=== PATIENT | female | born 1945 | race Caucasian/White ===

== ENCOUNTER → 2017-10-21 | Outpatient (CLI) | payer MEDICARE ==
[2016-07-27 13:36] VITALS: BMI 33.5
[~2017-10-21] MED LIST: ADV100/50 INH; ALB0.5 INH; ALBUDR INH; ASCO-599 PO; ASCO100T PO; ASPI-1471 PO; ASPI-274 PO; ASPI-719 PO; ATOR10TA65 PO; AUG875 PO; AZA50 PO; AZAT50TA25 PO; AZI250 PO; AZIT500T47 PO; BENZ200C38 PO; CALC-1197 PO; CEFU250 PO; CEP500 PO; CEPH250C37 PO; CHOL100094 PO; CITA-128 PO; CODE118S5 PO; CYAN25007 SL; CYAN250T15 PO; CYAN50TA3 PO; DUONEB INH; ESC10 PO; FLUT1DIS27 IH; FOL1 PO; FUR20 PO; GENT5DRO28 OP; GLUC-241 PO; GLUC-396 PO; GUAI480S48 PO; HYD200 PO; HYDR-317 PO; HYDR-385 PO; HYDR-4309 PO; HYDR200T77 PO; HYDR473S4 PO; HYDROCODONE/ACETAMIN; KET10 PO; LEV500 PO; LEVAQUIN; LEVO500T PO; LEVO750T25 PO; LEVO750T27 PO; LOR5 PO; LOR5/325 PO; LOTE5DRO3 OD; MEC25 PO; MECL-111 PO; MELO-150 PO; MELO-207 PO; MET10 PO; MET1000I; METF-411 PO; METH7.5T2 PO; METXR500 PO; NAPR500T31 PO; NOR5/325 PO; OXYC-823 PO; OXYC20TA86 PO; OXYC5TAB38 PO; OXYG1EAC MC; OXYGEN INH; PAN40 PO; PANT40TA63 PO; PANT40TA65 PO; PER PO; POTA20TA85 PO; POTA75TA PO; PRA20 PO; PRE10 PO; PRE20 PO; PRED-1 PO; PRED-314 PO; PRED1DRO2 OP; PREOD OD; REGADENOSON 0.4 MG/5 ML SYR ONE; SIMV10TA98 PO; SPIR25TA78 PO; SULF-198 PO; TIOT18CA6 IH; TOBOD OD; TRAM-420 PO; TRIA1CAP PO; VERA180C7 PO; [UNRECOGNIZED DRUG - OTHER]; [UNRECOGNIZED DRUG - OTHER]; [UNRECOGNIZED DRUG - OTHER]; [UNRECOGNIZED DRUG - REMARK]
--- NOTE | 2017-10-21 15:14 | RADIOLOGY IMAGING REPORT ---
FACILITY: [facility] PATIENT NAME: Siena Tomlinson : 1945 MR: [id number] V: [id number] EXAM DATE: ORDERING PHYSICIAN: JORGE HATCH TECHNOLOGIST: Location: [facility] [place] Patient: Siena Tomlinson : 1945 Visit/Account:[id number] Date of Sevice: 10/21/2017 EXAMINATION: Single isotope SPECT imaging with regadenoson infusion and gated SPECT imaging. DATE OF EXAMINATION: 10/21/17. DATE OF INTERPRETATION: 10/21/17. REQUESTING PHYSICIAN: JORGE HATCH MD. INDICATION: [CAD ]. PROCEDURE: After informed consent the patient received an intravenous injection of 12.5 mCi of Tc-99 m sestamibi followed at an appropriate time interval by rest imaging. The patient then subsequently received an intravenous infusion of 0.4 mg of regadenoson per protocol without complication. Baselin e EKG demonstrates NSR. There were no EKG changes of ischemia following infusion. Symptoms were non specific. The patient then received an intravenous injection of 29 mCi of Tc-99m sestamibi followed by stress imaging. RAW DATA: Examination of the summed raw data revealed a good quality study. Breast attenuation noted . MYOCARDIAL PERFUSION: The tomographic images demonstrate small sized moderate defect on rest and str ess imaging that resolves with prone imaging. Likely breast attenuation without ischemia or infart. No TID noted. GATED IMAGES: The gated images demonstrate 68% with normal wall motion. IMPRESSION: 1. No diagnostic EKG changes. 2. Normal myocardial perfusion scan with evidence of attenuation. No ischemia or infarct noted. 3. Normal LV systolic function; LVEF 68%. 4. Based on the results of this exam, the patient appears to be at low risk for future cardiovascular events in short term, moderate intermediate risk due to need for Lexiscan as opposed to ETT. Report Dictated By: Phuc Fan at 10/21/2017 3:04 PM Report E-Signed By: Phuc Fan at 10/21/2017 3:11 PM WSN:[id number]
== END ==
LOC: NUC 01:47
PROVIDERS: ATTEND Internal Medicine Cardiovascular Disease
DX: I25.118 Atherosclerotic heart disease of native coronary artery with other forms of angina pectoris (principal)
CPT/HCPCS: 78452; 93017; A9500; J2785

== ENCOUNTER → 2017-11-30 | Outpatient (CLI) | payer MEDICARE ==
[2016-07-27 13:36] VITALS: BMI 33.5
[~2017-11-30] MED LIST changes: -REGADENOSON 0.4 MG/5 ML SYR ONE
[2017-11-30 08:33] LABS: PLATELET COUNT, AUTOMATED 218 K/uL (150-450)
== END ==
LOC: LAB 08:03
PROVIDERS: ATTEND Anesthesiology
DX: Z01.812 Encounter for preprocedural laboratory examination (principal); M17.12 Unilateral primary osteoarthritis, left knee
CPT/HCPCS: 36415; 81001; 82040; 82247; 82310; 82374; 82435; 82565; 82947; 84075; 84132; 84155; 84295; 84450; 84460; 84520; 85025; 87088

== ENCOUNTER → 2017-12-08 | Outpatient (CLI) | payer MEDICARE ==
[2016-07-27 13:36] VITALS: BMI 33.5
[2017-12-08 12:11] LABS: PLATELET COUNT, AUTOMATED 221 K/uL (150-450)
== END ==
LOC: LAB 11:44
PROVIDERS: ATTEND Anesthesiology
DX: Z01.812 Encounter for preprocedural laboratory examination (principal); M17.12 Unilateral primary osteoarthritis, left knee
CPT/HCPCS: 36415; 81001; 82040; 82247; 82310; 82374; 82435; 82565; 82947; 84075; 84132; 84155; 84295; 84450; 84460; 84520; 85025

== ENCOUNTER → 2018-02-28 | Outpatient (CLI) | payer MEDICARE ==
[2016-07-27 13:36] VITALS: BMI 33.5
[~2018-02-28] MED LIST changes: +ACYC-1 PO; +BROM5DRO2 OP; +CIPR3.5O4 OP; +FLUT1AER INH; -HYDR-4309 PO; +HYDR-653 PO; -METF-411 PO; +METF-450 PO; +OASIS TEARS OP; +[UNRECOGNIZED DRUG - CODE] OP
--- NOTE | 2018-02-28 13:39 | EKG ---
FACILITY: [facility] PATIENT NAME: RICHARD RAM : [id number] MR: [id number] V: [id number] EXAM DATE: ORDERING PHYSICIAN: KASH CABALLERO TECHNOLOGIST: JEAN-CLAUDE Lai Reason : PREOP-KNEE Blood Pressure : / mmHG Vent. Rate : 074 BPM Atrial Rate : 074 BPM P-R Int : 154 ms QRS Dur : 092 ms QT Int : 420 ms P-R-T Axes : 064 034 058 degrees QTc Int : 466 ms Normal sinus rhythm Normal ECG No previous ECGs available Confirmed by Russ Santamaria ([id number]) on 02/28/2018 11:19:16 PM Referred By: MAGNUS Confirmed By:Russ Miles
[2018-02-28 13:41] LABS: PLATELET COUNT, AUTOMATED 274 K/uL (150-450)
== END ==
LOC: LAB 13:00
PROVIDERS: ATTEND Anesthesiology
DX: Z01.812 Encounter for preprocedural laboratory examination (principal); Z01.810 Encounter for preprocedural cardiovascular examination; M17.12 Unilateral primary osteoarthritis, left knee; E11.65 Type 2 diabetes mellitus with hyperglycemia
CPT/HCPCS: 36415; 81001; 82040; 82247; 82310; 82374; 82435; 82565; 82947; 83036; 84075; 84132; 84155; 84295; 84450; 84460; 84520; 85025; 93005

== ENCOUNTER → 2018-03-10 | Outpatient (CLI) | payer MEDICARE ==
[2016-07-27 13:36] VITALS: BMI 33.5
[~2018-03-10] MED LIST changes: +ACYC-50 PO; +DOXY50CA27 PO; +ERYT1OIN3 TP; +PRED15SO5 OD
== END ==
LOC: US 01:14
PROVIDERS: ATTEND Internal Medicine
DX: I51.7 Cardiomegaly (principal)
CPT/HCPCS: 93306

== ENCOUNTER 2018-03-16 02:22 | Inpatient (IN) | payer MEDICARE ==
[2018-03-15 14:32] LABS: INR 0.98
[~2018-03-16] VITALS: Ht 149.9 cm; Wt 76.2 kg
[2018-03-16] VITALS (10 sets, daily range): BP systolic 101–122; BP diastolic 62–98
[~2018-03-16 02:22] MED LIST changes: +ACETAMINOPHEN 500 MG TAB PO ONE; +BACITRACIN 50000 UNIT/VIAL 100,000 UNIT in NS 0.9% 3000 ML IRRIGATION BAG 3,000 ML IR ONE; +CELECOXIB 200 MG CAP PO ONE; +FAMOTIDINE 20 MG TAB PO ONE; +LIDOCAINE/SOD BICARB 8.4% SYR ID ONE; +MIDAZOLAM 2 MG/2 ML VIAL IVP PRN; +NORMOSOL R SOLN(*) 1000 ML BAG 1,000 ML IV PRN; +PREGABALIN 75 MG CAPSULE PO ONE; +TRANEXAMIC AC 1000 MG/10ML SDV 1,000 MG in DEXTROSE 5% 50 ML BAG 50 ML IV ONE; +ceFAZolin(*) 2GM/D5W 50ML 50 ML IVPB ONE; +cloNIDine EPIDUR INJ 100MCG/ML 40 MCG, ROPIVACAINE 0.5% 20 ML VIAL 25 ML, EPINEPHrine H... EPI ONE
[2018-03-16] MEDS ORDERED: fentaNYL CITR 250 MCG/5 ML AMP ONE (08:11)
[2018-03-16] MEDS ORDERED: LIDOCAINE 2% IV 100 MG/5ML SYR ONE (08:12)
[2018-03-16] MEDS ORDERED: PROPOFOL EMUL(*) 10MG/ML 20 ML 20 ML ONE (08:12)
[2018-03-16] MEDS ORDERED: ROPIVACAINE 0.5% 20 ML VIAL ONE (08:18)
[2018-03-16] MEDS ORDERED: DEXAMETHASONE SOD 4 MG/ML VIAL ONE ×2 (08:19→08:27)
[2018-03-16] MEDS ORDERED: TRANEXAMIC AC 1000 MG/10ML SDV 1,000 MG in DEXTROSE 5% 50 ML BAG 50 ML IV ONE (09:15)
[2018-03-16] MEDS ORDERED: BACITRACIN 50000 UNIT/VIAL 100,000 UNIT in NS 0.9% 3000 ML IRRIGATION BAG 3,000 ML IR ONE (09:15)
[2018-03-16] MEDS ORDERED: ceFAZolin(*) 2GM/D5W 50ML 50 ML IVPB ONE (09:15)
[2018-03-16] MEDS ORDERED: LIDOCAINE/SOD BICARB 8.4% SYR ID ONE (09:15)
[2018-03-16] MEDS ORDERED: PREGABALIN 75 MG CAPSULE PO ONE (09:15)
[2018-03-16] MEDS ORDERED: cloNIDine EPIDUR INJ 100MCG/ML 40 MCG, ROPIVACAINE 0.5% 20 ML VIAL 25 ML, EPINEPHrine H... INJ ONE (09:15)
[2018-03-16] MEDS ORDERED: MIDAZOLAM 2 MG/2 ML VIAL IVP PRN (09:15)
[2018-03-16] MEDS ORDERED: ACETAMINOPHEN 500 MG TAB PO ONE (09:15)
[2018-03-16] MEDS ORDERED: NORMOSOL R SOLN(*) 1000 ML BAG 1,000 ML IV PRN (09:15)
[2018-03-16] MEDS ORDERED: CELECOXIB 200 MG CAP PO ONE (09:15)
[2018-03-16] MEDS ORDERED: ROCURONIUM BROM 10 MG/ML 10 ML ONE (11:00)
[2018-03-16] MEDS ORDERED: KETAMINE HCL 200 MG/20 ML MDV ONE ×2 (11:28→12:27)
[2018-03-16] MEDS ORDERED: ONDANSETRON 4 MG/2 ML VIAL ONE (11:34)
[2018-03-16] MEDS ORDERED: fentaNYL CITR 100 MCG/2 ML AMP ONE ×2 (12:15→12:46)
[2018-03-16] MEDS ORDERED: SUGAMMADEX SOD 200 MG/2 ML SDV ONE (12:16)
[2018-03-16] MEDS ORDERED: diphenhydrAMINE 25 MG CAP PO PRN (13:55)
[2018-03-16] MEDS ORDERED: MAGNESIUM CITRATE 300 ML BTL PO PRN (13:55)
[2018-03-16] MEDS ORDERED: BISACODYL 10 MG SUPP PR PRN (13:55)
[2018-03-16] MEDS ORDERED: FLUSH 10 ML SYR IVP PRN (13:55)
[2018-03-16] MEDS ORDERED: HYDROmorphone HCL 2 MG/ML SDV IVP PRN (13:55)
[2018-03-16] MEDS ORDERED: LR 1000 ML BAG 1000 ML IV PRN (13:55)
[2018-03-16] MEDS ORDERED: MAGNESIUM HYDROXIDE* 30ML UDCP PO PRN (13:55)
[2018-03-16] MEDS ORDERED: PROMETHAZINE 25 MG/ML 1 ML AMP IVP PRN (13:55)
[2018-03-16] MEDS ORDERED: diphenhydrAMINE 50 MG/ML VIAL IVP PRN (13:55)
[2018-03-16] MEDS ORDERED: ONDANSETRON 4 MG/2 ML VIAL IVP PRN (13:55)
[2018-03-16] MEDS ORDERED: ZOLPIDEM TARTRATE 5 MG TAB PO PRN (13:55)
--- NOTE | 2018-03-16 15:07 | RADIOLOGY IMAGING REPORT ---
FACILITY: [facility] [place] PATIENT NAME: Siena Tomlinson : 1945 MR: [id number] V: [id number] EXAM DATE: ORDERING PHYSICIAN: ANDREE AGUDELO TECHNOLOGIST: Location: [facility] [place] Patient: Siena Tomlinson : 1945 Visit/Account:[id number] Date of Sevice: 03/16/2018 KNEE LIMITED LEFT Indication: Postop knee replacement Comparison: None available Findings: There are surgical changes from three part knee replacement. TKA appears appropriately positioned, n o abnormal lucencies are identified. IMPRESSION: 1. Unremarkable postoperative appearance of three part TKA Report Dictated By: Sam Rosales at 03/16/2018 3:02 PM Report E-Signed By: Sam Rosales at 03/16/2018 3:03 PM WSN:[id number]
[2018-03-16] MEDS ORDERED: METF500T4 PO (15:31)
--- NOTE | 2018-03-16 15:31 | OPERATIVE REPORT 1 ---
EVENT DATE: March 16, 2018 SURGEON: Ke Winchester MD ANESTHESIOLOGIST: Saul Rodriguez MD ANESTHESIA: General plus a block. PUNCHBOARD ASSEMBLER: Guero Navarrete PA-C PREOPERATIVE DIAGNOSIS Left knee osteoarthritis. POSTOPERATIVE DIAGNOSIS Left knee osteoarthritis. PROCEDURE PERFORMED Left total knee arthroplasty. FINDINGS The patient has a significant amount of arthritic changes associated with the knee, but was amenable for a total knee replacement and had good movement afterwards. ESTIMATED BLOOD LOSS About 250 mL. DRAINS None. COMPLICATIONS None. TOURNIQUET TIME About 18 minutes. It was up only during cementation. IMPLANTS USED DePuy Attune posterior stabilized knee with a size 6 narrow cemented femur with a size 5 cemented tibial baseplate with a rotating platform and a rotating platform posterior stabilized 6 mm tibial insert. There was also a 32 cemented anatomic patella. SPECIMENS None. INDICATIONS AND HISTORY This patient is a 72-year-old female who presented to my clinic for evaluation of knee pain and irritation going on for some time. She continued to have knee pain in the left knee despite conservative management, so she wanted to go ahead with a total knee arthroplasty on the date today, 03/16/2018. The risks and benefits were discussed with the patient, and informed consent was obtained at the last clinic visit. She understood it may not give her complete relief, and she may have some stiffness associated with it. She understood those. We went over the informed consent, and she agreed to do this today. DESCRIPTION OF PROCEDURE As the patient was brought into the operating room, she and the procedure were both verified. She was placed supine on the operating room and induced and intubated by Anesthesia. After beginning with the block, the left lower extremity was then prepped and draped in the usual fashion. A timeout was observed verifying the correct patient and procedure. The standard incision was made over the anterior aspect of the knee, and then we went in through the medial parapatellar approach. Once I went in through the medial parapatellar approach, I was then able to cauterize all bleeders throughout the area and make sure there was a clean field. We also removed a little bit of irritation over the superior pouch over the femur. I then was able to remove the patellar fat pad and also the anterior aspects of the medial and lateral menisci. I then was able to put the knee into high flexion and then remove the ACL and the leading portion of the PCL. I then removed some osteophytes off the femur and then put the intramedullary drill down the middle portion of the femur. I then utilized the intramedullary guide from the Attune system, setting it on 5 and 9 to resect 9 mm off the distal femur. I then put in the measuring guide and drilled the pins. This measured to a 6, and so therefore, we put in the four-in-one cutting block for a 6, and I was able to cut the four cuts including the two chamfer cuts without any difficulty. I then put in the notch cutting block and cut the 6 notch without any issues. We then removed some posterior osteophytes and then turned attention to the tibia. Once on the tibia, I was able to clean out the rest of the posterior aspect of the menisci and also the rest of the PCL and the remnant of the ACL. I then was able to drill the central portion down the intramedullary canal and then use the intramedullary guide from the Attune system in order to cut the femur. I then cut 2 mm off the medial side, which was the low side, and then was able to remove some more osteophytes off this area in order to prep the tibia. Once we made this cut, I then was able to go to the posterior aspect of the femur where I was able to remove some posterior osteophytes off this area and then do a little bit of capsular release as she had a slight contracture. This was then followed by prepping the tibia with a 5 baseplate. The 5 seemed to do pretty well, and so therefore, we then prepped the tibia without any difficulty and then put in the trial. We then put in the trial components for the femur also and then put in the 6 mm tibial insert. This had excellent flexion and extension. It went out to full extension and then had no signs of major instability associated with flexion. We then were able to irrigate with copious amounts of saline, keep it straight, and then prepare the patella. We prepared the patella by measuring the patella to about 21. We, therefore, then used the 7.5 mm cut from the patella, removed the edge of the patella, and then sized the patella to a 32 anatomic. I then was able to go through the drills holes associated with this and drill the lug nuts out of the femur. I then trialed the 32 patella, and it looked very good and tracked well, and so therefore, these were the final components chosen. I then put up the tourniquet after exsanguinating the limb and removed the trial components. I irrigated with copious amounts of saline and then put in the pain cocktail. I was then able to cement in the components without any difficulty, and once the cement was hard, we were able to remove the attachment to the patella and then make sure everything tracked well. We also let down the tourniquet. This was then followed by closure of the medial parapatellar capsule with #2 Stratafixes, then followed by 2-0 Vicryl in the subcutaneous tissue, then a subcutaneous 2-0 Stratafix through the skin, and then a 4-0 subcuticular running Monocryl. This was then followed by a bio-occlusive dressing. The patient was then awakened, extubated, and transferred to PACU in stable condition. MYRTLE
[2018-03-16] MEDS ORDERED: INSULIN HUM LISPRO 100 UN/ML 3 ML VIAL SUBQ PRN (15:45)
--- NOTE | 2018-03-16 16:01 | Hospitalist Consultation ---
History of Present Illness Requesting Physician Dr. Winchester Reason for Consult Medical Management Chief Complaint s/p left total knee replacement History of Present Illness She was admitted s/p left total knee replacement. It is reported the surgery went well and without complication. History Problems: (1) Shingles Status: Acute (2) CAD (coronary artery disease) Status: Chronic (3) GERD (gastroesophageal reflux disease) Status: Chronic (4) DM2 (diabetes mellitus, type 2) Status: Chronic (5) History of lupus Status: Chronic (6) History of irregular heartbeat Status: Chronic Home Meds Reported Medications Metformin Hcl (METFORMIN HCL ER) 500 Mg Tab.er.24, 1 TAB PO QDAY, TAB 03/16/18 Erythromycin Base (Erythromycin) 5 Mg/Gram (0.5 %) Oint...g., 1 UNIT TP HS 03/08/18 Prednisolone Sod Phos 15 Mg/5 Ml (PREDNISOLONE SOD PHOS 15 MG/5 ML) 15 Mg/5 Ml Solution, 1 GTT OD DAILY, BOT 03/08/18 Acyclovir (ACYCLOVIR) 400 Mg Tablet, 400 MG PO 5XD, TAB 03/08/18 Doxycycline Hyclate (DOXYCYCLINE HYCLATE) 50 Mg Capsule, 50 MG PO DAILY, CAPSULE 03/08/18 Meloxicam (MELOXICAM) 15 Mg Tablet, 15 MG PO QDAY 01/26/18 Fluticasone/Vilanterol 100/25 Mcg/Inh (BREO ELLIPTA 100/25 MCG) 1 Each Aer.pow.ba, 1 INH INH QAM, INH 12/15/17 [[place] Tears ] No Conflict Check, 1 DROP OP PRN 12/15/17 Hydroxychloroquine Sulfate (PLAQUENIL) 200 Mg Tablet, 400 MG PO QDAY 12/15/17 Pantoprazole Sodium (PANTOPRAZOLE SODIUM) 40 Mg Tablet.dr, 40 MG PO QDAY, TAB.SR 03/02/17 Atorvastatin Calcium (ATORVASTATIN CALCIUM) 10 Mg Tablet, 1 TAB PO QDAY, TAB 07/27/16 Cyanocobalamin (Vitamin B-12) (VITAMIN B-12) 250 Mcg Tablet, 250 MCG PO QDAY 07/27/16 Aspirin (ASPIR 81) 81 Mg Tablet.dr, 81 MG PO QDAY, TAB 07/27/16 Glucosa [place] 2KCL/Chondroitin [place] (GLUCOSAMINE CHONDROITIN CAPLET) 1 Each Tablet, 1 EACH PO BID 11/08/13 Citalopram Hydrobromide (Citalopram Hbr) 20 Mg Tablet, 20 MG PO DAILY, 0 Refills 02/07/12 Spironolactone (Spironolactone) 25 Mg Tablet, 25 MG PO QAM, 0 Refills 02/27/11 Calcium Carbonate/Vitamin D3 (Calcium W-Vit D 600-200 Mg Tab) 1 Tab Tablet, 1 TAB PO BID, 0 Refills 02/27/11 Ascorbate Calcium (Vitamin C) 500 Mg Tablet, 500 MG PO BID, 0 Refills 02/27/11 Verapamil Hcl (Verelan) 180 Mg Cap24h.pel, 180 MG PO DAILY, 0 Refills 02/27/11 Discontinued Reported Medications Metformin Hcl (METFORMIN HCL) 500 Mg Tablet, 1 TAB PO QDAY, TAB 03/02/17 Allergies: Coded Allergies: methotrexate (Verified Allergy, Intermediate, BREATHING PROBLEMS, 01/26/18) alprazolam (Verified Allergy, Mild, SMALL AMOUNT WORKS TOO WELL, 12/15/17) "OVERLY SENSITIVE TO IT" Beta-Blockers (Beta-Adrenergic Bloc (Verified Allergy, Unknown, Lupus, 12/15/17) "FCI EFFECT GIVES ME CHEMICALLY INDUCED LUPUS" Patient History: FH: diabetes mellitus MOTHER (KIDNEY CANCER, DM, STROKE), FH: kidney cancer MOTHER (KIDNEY CANCER, DM, STROKE), FH: lung cancer MOTHER (KIDNEY CANCER, DM, STROKE), Hx Smoking: Yes (QUIT 1998) Smoking Status: Former Smoker, Heavy Tobacco Smoker Exposure to Second Hand Smoke?: Yes ("SOMETIMES") Caffeine Intake: Coffee Caffeine/Cups Per Day: 3 Hx Alcohol Use: Yes Alcohol Used: Beer Hx Substance Use Disorder: No Social Drug Use: Never History of IV Drug Use: No Review of Systems All Systems Reviewed/Normal: Yes, Except as Noted Exam Vital Signs Vital Signs Date Time Temp Pulse Resp B/P (MAP) Pulse Ox O2 Delivery O2 Flow Rate FiO2 03/16/18 14:40 91 Nasal Cannula 3.0 03/16/18 14:37 98.1 96 16 119/62 (81) General Appearance: Alert, Awake, No Acute Distress, Afebrile Neuro: No Gross deficits Cardiovascular: Regular Rate and Rhythm Respiratory: No Respiratory Distress, Clear to Auscultation GI: Abd Soft and Non-Tender Psych: Alert & Oriented X3, Appropriate Mood & Affect Assessment and Plan Problems: (1) Status post total left knee replacement Status: Acute Assessment & Plan: She will be placed on Aspirin for DVT prophylaxis. She has no history of DVT or PE. (2) DM2 (diabetes mellitus, type 2) Status: Chronic Assessment & Plan: She is on chronic treatment with Metformin. She will be placed on SS insulin #1 and AC/HS blood glucose monitoring. We will hold Metformin until patient is eating better, she reports her A1C is 5.5. (3) History of irregular heartbeat Status: Chronic Assessment & Plan: She is on chronic treatment with Verapamil. This has been restarted with hold parameters. (4) History of lupus Status: Chronic Assessment & Plan: She is on chronic treatment with Plaquenil. This was held two weeks prior to surgery. (5) GERD (gastroesophageal reflux disease) Status: Chronic Assessment & Plan: She is on chronic treatment with Protonix. (6) CAD (coronary artery disease) Status: Chronic Assessment & Plan: She is on chronic with baby aspirin and Spironoloactone. Aspirin to be held, while receiving the 325mg. Spironolactone to be held until blood pressures are more elevated. (7) Shingles Status: Acute Assessment & Plan: Recent Shingles infection of the eye. She is on multiple medications for treatment of Shingles. Venous Thromboembolism Antithrombotics Is Pt On Any Antithrombotics?: No Exam Sepsis Risk: No Definite Risk NEELA CARVAJAL Mar 16, 2018 16:01
[2018-03-16] MEDS: ACYCLOVIR 200 MG CAP PO SCH ×2 (17:15→23:03)
[2018-03-16] MEDS: ceFAZolin(*) 1 GM VIAL 1 GM in NS(*) 0.9% 100 ML ADDVANT BAG 100 ML IVPB SCH (19:43)
[2018-03-16] MEDS: ASPIRIN 325 MG TAB PO SCH (21:05)
[2018-03-16] MEDS: ERYTHROMYCIN OP OINT 5MG/GM TU OD SCH (21:06)
[2018-03-17] MEDS: ceFAZolin(*) 1 GM VIAL 1 GM in NS(*) 0.9% 100 ML ADDVANT BAG 100 ML IVPB SCH ×2 (04:05→10:54)
[2018-03-17] MEDS: ACYCLOVIR 200 MG CAP PO SCH ×5 (05:46→21:45)
[2018-03-17] MEDS: FLUTICASONE/VILANTEROL 100 MCG/25 MCG INH INH SCH ×2 (06:00→18:47)
[2018-03-17 07:39] VITALS: BP 123/71
[2018-03-17 08:35] VITALS: Ht 149.9 cm; Wt 76.2 kg
[2018-03-17] MEDS ORDERED: VERAPAMIL HCL SR 180 MG TABCR PO SCH (09:00)
[2018-03-17] MEDS: HYDROXYCHLOROQUINE 200 MG TAB PO SCH (09:16)
[2018-03-17] MEDS: PANTOPRAZOLE SOD 40 MG TABEC PO SCH (09:17)
[2018-03-17] MEDS: ATORVASTATIN 10 MG TAB PO SCH (09:17)
[2018-03-17] MEDS: CITALOPRAM HYDROBROM 20 MG TAB PO SCH (09:17)
[2018-03-17] MEDS: prednisoLONE ACE 1% OP 5ML BTL OD SCH (09:18)
--- NOTE | 2018-03-17 09:26 | Hospitalist Progress Note ---
Subjective Progress Notes Subjective She has no complaints this morning. She had no acute events overnight. Patient Complains of: Cardiovascular: No: Chest Pain Respiratory: No: Shortness of Breath Physical Exam Vital Signs Date Time Temp Pulse Resp B/P (MAP) Pulse Ox O2 Delivery O2 Flow Rate FiO2 03/16/18 23:04 98.1 95 16 101/65 (77) 92 Nasal Cannula 2.5 Intake and Output 03/17/18 07:00 Intake Total 1775 ml Output Total 250 ml Balance 1525 ml Intake Oral 0 ml IV Total 1775 ml Output Estimated Blood Loss 250 ml # Voids 3 General Appearance: Alert, Awake, No Acute Distress, Afebrile Neuro: No Gross deficits Cardiovascular: Regular Rate and Rhythm Respiratory: No Respiratory Distress, Clear to Auscultation GI: Soft and Non-Tender Psych: Alert & Oriented X3, Appropriate Mood & Affect Result Diagram: 03/17/18 0551 Assessment and Plan Problems: (1) Status post total left knee replacement Status: Acute Assessment & Plan: She will be placed on Aspirin for DVT prophylaxis. She has no history of DVT or PE. (2) DM2 (diabetes mellitus, type 2) Status: Chronic Assessment & Plan: She is on chronic treatment with Metformin. She will be placed on SS insulin #1 and AC/HS blood glucose monitoring. We will hold Metformin until tomorrow, patient is eating better this morning, she reports her A1C is 5.5. (3) History of irregular heartbeat Status: Chronic Assessment & Plan: She is on chronic treatment with Verapamil. This has been restarted with hold parameters. (4) History of lupus Status: Chronic Assessment & Plan: She is on chronic treatment with Plaquenil. This was held two weeks prior to surgery. (5) GERD (gastroesophageal reflux disease) Status: Chronic Assessment & Plan: She is on chronic treatment with Protonix. (6) CAD (coronary artery disease) Status: Chronic Assessment & Plan: She is on chronic with baby aspirin and Spironoloactone. Aspirin to be held, while receiving the 325mg. Spironolactone to be held until blood pressures are more elevated. (7) Shingles Status: Acute Assessment & Plan: Recent Shingles infection of the eye. She is on multiple medications for treatment of Shingles. Exam Sepsis Risk: No Definite Risk NEELA CARVAJAL MOLD MACHINE OPERATOR Mar 17, 2018 09:26
[2018-03-17] MEDS: DOXYCYCLINE HYCL 100 MG TAB PO SCH (10:06)
[2018-03-17 11:40] VITALS: BP 104/56
[2018-03-17 14:34] VITALS: BP 120/66
[2018-03-17 15:35] VITALS: BP 121/57
[2018-03-17] MEDS ORDERED: HYPROMELLOSE 0.4% LUB 15ML BTL OU PRN (17:50)
[2018-03-17] MEDS ORDERED: LEVALBUTEROL 1.25 MG/3 ML NEB NEB PRN (18:40)
[2018-03-17 20:18] VITALS: BP 134/69
[2018-03-17] MEDS: ERYTHROMYCIN OP OINT 5MG/GM TU OD SCH (21:47)
[2018-03-17] MEDS: ASPIRIN 325 MG TAB PO SCH (21:50)
[2018-03-17 22:59] VITALS: BP 120/57
[2018-03-18 02:35] VITALS: BP 142/78
[2018-03-18] MEDS: ACYCLOVIR 200 MG CAP PO SCH ×3 (06:18→14:37)
[2018-03-18] MEDS ORDERED: OXYC-865 PO (07:24)
[2018-03-18 07:33] VITALS: BP 121/70
[2018-03-18] MEDS: HYDROXYCHLOROQUINE 200 MG TAB PO SCH (08:36)
[2018-03-18] MEDS: DOXYCYCLINE HYCL 100 MG TAB PO SCH (08:36)
[2018-03-18] MEDS: PANTOPRAZOLE SOD 40 MG TABEC PO SCH (08:37)
[2018-03-18] MEDS: ATORVASTATIN 10 MG TAB PO SCH (08:37)
[2018-03-18] MEDS: CITALOPRAM HYDROBROM 20 MG TAB PO SCH (08:37)
[2018-03-18] MEDS: prednisoLONE ACE 1% OP 5ML BTL OD SCH (08:37)
[2018-03-18] MEDS ORDERED: ALOE TP PRN (08:50)
[2018-03-18] MEDS ORDERED: VERAPAMIL HCL SR 180 MG TABCR PO SCH (09:00)
[2018-03-18] MEDS ORDERED: metFORMIN HCL XR 500 MG TABCR PO SCH (09:00)
[2018-03-18] MEDS ORDERED: ASPI-757 PO (09:02)
--- NOTE | 2018-03-18 09:52 | Hospitalist Progress Note ---
Subjective Progress Notes Subjective Patient reports she spilled her coffee on her chest while trying to take a drink this morning. She has reddened skin to the chest. No blisters present. She also has complaints of pain to the surgical site. Patient Complains of: Cardiovascular: No: Chest Pain Respiratory: No: Shortness of Breath Physical Exam Vital Signs Date Time Temp Pulse Resp B/P (MAP) Pulse Ox O2 Delivery O2 Flow Rate FiO2 03/18/18 07:33 99.6 96 16 121/70 (87) 95 Nasal Cannula 1.0 Intake and Output 03/18/18 07:00 Intake Total 830 ml Balance 830 ml Intake Oral 718 ml IV Total 112 ml # Voids 5 General Appearance: Alert, Awake, No Acute Distress, Afebrile Neuro: No Gross deficits Cardiovascular: Regular Rate and Rhythm Respiratory: No Respiratory Distress, Clear to Auscultation GI: Soft and Non-Tender Extremities: Warm, Perfused; No Edema Integumentary: Other (redness of skin on right side of chest to right shoulder, no blisters) Psych: Alert & Oriented X3, Appropriate Mood & Affect Result Diagram: 03/18/18 0530 Assessment and Plan Problems: (1) Status post total left knee replacement Status: Acute Assessment & Plan: She will be placed on Aspirin for DVT prophylaxis. She has no history of DVT or PE. (2) DM2 (diabetes mellitus, type 2) Status: Chronic Assessment & Plan: She is on chronic treatment with Metformin. She was placed on SS insulin #1 and AC/HS blood glucose monitoring. Metformin will be restarted today. She reports her A1C is 5.5 pre-operatively. (3) History of irregular heartbeat Status: Chronic Assessment & Plan: She is on chronic treatment with Verapamil. This has been restarted with hold parameters. (4) History of lupus Status: Chronic Assessment & Plan: She is on chronic treatment with Plaquenil. This was held two weeks prior to surgery. (5) GERD (gastroesophageal reflux disease) Status: Chronic Assessment & Plan: She is on chronic treatment with Protonix. (6) CAD (coronary artery disease) Status: Chronic Assessment & Plan: She is on chronic with baby aspirin and Spironolactone. Aspirin to be held, while receiving the 325mg. Spironolactone to be held until blood pressures are more elevated. Recommended follow up with Dr. Warner next week for blood pressures prior to restarting Spironolactone. (7) Shingles Status: Acute Assessment & Plan: Recent Shingles infection of the eye. She is on multiple medications for treatment of Shingles. (8) Burn by hot liquid Status: Acute Assessment & Plan: She spilled coffee on her chest. She has no blisters present, recommend she use aloe gel for comfort of skin. Exam Sepsis Risk: No Definite Risk NEELA CARVAJAL SAP ARCHITECT Mar 18, 2018 09:52
[2018-03-18 11:57] VITALS: BP 119/70
== END 2018-03-18 15:00 | disposition home or self-care (01) | DRG 470 ==
LOC: OR 02:22 → MED 14:30 → OBSVTOIN 14:30
PROVIDERS: ADMIT Orthopaedic Surgery; ATTEND Orthopaedic Surgery
PROC: 0SRD0J9 Replacement of Left Knee Joint with Synthetic Substitute, Cemented, Open Approach (ICD-10-PCS; principal; 2018-03-16 11:19)
DX: M17.12 Unilateral primary osteoarthritis, left knee (principal); B02.30 Zoster ocular disease, unspecified; I25.10 Atherosclerotic heart disease of native coronary artery without angina pectoris; K21.9 Gastro-esophageal reflux disease without esophagitis; E11.9 Type 2 diabetes mellitus without complications; M32.9 Systemic lupus erythematosus, unspecified; E66.9 Obesity, unspecified; G47.33 Obstructive sleep apnea (adult) (pediatric); F32.9 Major depressive disorder, single episode, unspecified; Z90.49 Acquired absence of other specified parts of digestive tract; Z79.84 Long term (current) use of oral hypoglycemic drugs; Z68.33 Body mass index [BMI] 33.0-33.9, adult
CPT/HCPCS: 36415; 36416; 76942; 82948; 85014; 85018; 85610; 86850; 86900; 86901; 94640; 97161; C1713; C1776; J0171; J0690; J0735; J1100; J1170; J1885; J2001; J2250; J2405; J2704; J2795; J3010; J3490; J7050; J7060

== ENCOUNTER → 2018-04-20 | Outpatient (CLI) | payer MEDICARE ==
[2018-03-17 08:35] VITALS: BMI 33.9
[~2018-04-20] MED LIST changes: -ACETAMINOPHEN 500 MG TAB PO ONE; +ASPI-757 PO; -BACITRACIN 50000 UNIT/VIAL 100,000 UNIT in NS 0.9% 3000 ML IRRIGATION BAG 3,000 ML IR ONE; -CELECOXIB 200 MG CAP PO ONE; -FAMOTIDINE 20 MG TAB PO ONE; -LIDOCAINE/SOD BICARB 8.4% SYR ID ONE; +METF500T4 PO; -MIDAZOLAM 2 MG/2 ML VIAL IVP PRN; -NORMOSOL R SOLN(*) 1000 ML BAG 1,000 ML IV PRN; +OXYC-865 PO; -PREGABALIN 75 MG CAPSULE PO ONE; -TRANEXAMIC AC 1000 MG/10ML SDV 1,000 MG in DEXTROSE 5% 50 ML BAG 50 ML IV ONE; -ceFAZolin(*) 2GM/D5W 50ML 50 ML IVPB ONE; -cloNIDine EPIDUR INJ 100MCG/ML 40 MCG, ROPIVACAINE 0.5% 20 ML VIAL 25 ML, EPINEPHrine H... EPI ONE
--- NOTE | 2018-04-21 10:15 | RADIOLOGY IMAGING REPORT ---
FACILITY: [facility] [place] PATIENT NAME: RICHARD RAM : [id number] MR: [id number] V: [id number] EXAM DATE: [id number] ORDERING PHYSICIAN: HOLLY CAMACHO TECHNOLOGIST: Mariah Blair PROCEDURE:BILATERAL DIGITAL SCREENING MAMMOGRAM WITH CAD ASSISTED INTERPRETATION & 3D TOMOSYNTHESIS COMPARISON:Prior mammograms dated 11/27/15, 10/06/14, 10/05/13, 09/22/13, 09/15/13, 08/04/12 INDICATIONS:SCREENING FINDINGS: The breasts are heterogeneously dense which may obscure small masses. The parenchymal pattern has remained stable allowing for difference in mammographic technique & patient positioning. DIAGNOSTIC CATEGORY 1--NEGATIVE. RECOMMENDATIONS: ROUTINE MAMMOGRAM AND CLINICAL EVALUATION. IMPRESSION: BIRADS 1: Negative. No significant abnormality is seen. Dictated by: Jessica Dunbar M.D. on 04/20/2018 at 16:37 Transcribed by: JOSLYN on 04/21/2018 at 9:54 Approved by: Jessica Dunbar M.D. on 04/21/2018 at 10:14 [facility]
== END ==
LOC: MAMO 00:48
PROVIDERS: ATTEND Family Medicine
DX: Z12.31 Encounter for screening mammogram for malignant neoplasm of breast (principal); Z80.3 Family history of malignant neoplasm of breast
CPT/HCPCS: 77063; 77067

== ENCOUNTER → 2018-07-29 | Outpatient (CLI) | payer MEDICARE ==
[2018-03-17 08:35] VITALS: BMI 33.9
[2018-07-29 13:58] LABS: PLATELET COUNT, AUTOMATED 260 K/uL (150-450)
== END ==
LOC: LAB 13:28
PROVIDERS: ATTEND Surgery
DX: G47.30 Sleep apnea, unspecified (principal); E11.9 Type 2 diabetes mellitus without complications
CPT/HCPCS: 36415; 82310; 82374; 82435; 82565; 82947; 83036; 84132; 84295; 84520; 85025

== ENCOUNTER 2018-08-16 13:14 | Emergency (ER) | payer MEDICARE ==
[2018-03-17 08:35] VITALS: Wt 82.1 kg
--- NOTE | 2018-08-16 13:18 | ER Report ---
History and Physical Time Seen By MD: 13:18 HPI/ROS CHIEF COMPLAINT: Hip and back pain HISTORY OF PRESENT ILLNESS: Patient is a pleasant 72-year-old female who is a history of prior back surgery. States that on August 07 she was sitting at a friend's house on her sofa started developing some low back pain with radiation down the left thigh. She states that symptoms have been present ever since she did note some improvement after taking 1000 mg of ibuprofen and applying heat to her lower back she has not taken any pain medicines today. She states it hurts to stand. She states that she has never had similar symptoms although she has many different types of musculoskeletal problems and complaints. Eyes any fevers or chills. She denies incontinence or retention of urine or stool. Denies any other traumatic injury. Allergies: Coded Allergies: methotrexate (Verified Allergy, Intermediate, BREATHING PROBLEMS, 01/26/18) alprazolam (Verified Allergy, Mild, SMALL AMOUNT WORKS TOO WELL, 12/15/17) "OVERLY SENSITIVE TO IT" Beta-Blockers (Beta-Adrenergic Bloc (Verified Allergy, Unknown, Lupus, 12/15/17) "NURSING HOME EFFECT GIVES ME CHEMICALLY INDUCED LUPUS" Home Meds Active Scripts Tramadol Hcl (TRAMADOL HCL) 50 Mg Tablet, 50 MG PO Q6H PRN for PAIN, #12 TAB 0 Refills Prov:POP SENA MD 08/16/18 Reported Medications Meloxicam (MELOXICAM) 7.5 Mg/5 Ml Oral.susp, 7.5 MG PO QDAY 08/16/18 Metformin Hcl (METFORMIN HCL ER) 500 Mg Tab.er.24, 1 TAB PO QDAY, TAB 03/16/18 Erythromycin Base (Erythromycin) 5 Mg/Gram (0.5 %) Oint...g., 1 UNIT TP HS 03/08/18 Prednisolone Sod Phos 15 Mg/5 Ml (PREDNISOLONE SOD PHOS 15 MG/5 ML) 15 Mg/5 Ml Solution, 1 GTT OD DAILY, BOT 03/08/18 Acyclovir (ACYCLOVIR) 400 Mg Tablet, 400 MG PO 5XD, TAB 03/08/18 Fluticasone/Vilanterol 100/25 Mcg/Inh (BREO ELLIPTA 100/25 MCG) 1 Each Aer.pow.ba, 1 INH INH QAM, INH 12/15/17 Pantoprazole Sodium (PANTOPRAZOLE SODIUM) 40 Mg Tablet.dr, 40 MG PO QDAY, TAB.SR 03/02/17 Atorvastatin Calcium (ATORVASTATIN CALCIUM) 10 Mg Tablet, 1 TAB PO QDAY, TAB 07/27/16 Cyanocobalamin (Vitamin B-12) (VITAMIN B-12) 250 Mcg Tablet, 250 MCG PO QDAY 07/27/16 Aspirin (ASPIR 81) 81 Mg Tablet.dr, 81 MG PO QDAY, TAB Hold while taking the Aspirin 325mg, then resume after 30 days. 07/27/16 Glucosa Rutherford 2KCL/Chondroitin Rutherford (GLUCOSAMINE CHONDROITIN CAPLET) 1 Each Tablet, 1 EACH PO BID 11/08/13 Citalopram Hydrobromide (Citalopram Hbr) 20 Mg Tablet, 20 MG PO DAILY, 0 Refills 02/07/12 Calcium Carbonate/Vitamin D3 (Calcium W-Vit D 600-200 Mg Tab) 1 Tab Tablet, 1 TAB PO BID, 0 Refills 02/27/11 Ascorbate Calcium (Vitamin C) 500 Mg Tablet, 500 MG PO BID, 0 Refills 02/27/11 Verapamil Hcl (Verelan) 180 Mg Cap24h.pel, 180 MG PO DAILY, 0 Refills 02/27/11 Discontinued Reported Medications [[place] Tears ] No Conflict Check, 1 DROP OP PRN 12/15/17 Hydroxychloroquine Sulfate (PLAQUENIL) 200 Mg Tablet, 400 MG PO QDAY 12/15/17 Past Medical/Surgical History Medical history for chronic lupus, history of chronic irregular heartbeat, inflammatory arthritis, hypertension, coronary artery disease, type II diabetes, gastroesophageal reflux disease. Hx Smoking: Yes (QUIT 1998) Smoking Status: Former Smoker, Heavy Tobacco Smoker Exposure to Second Hand Smoke?: Yes ("SOMETIMES") Hx Substance Use Disorder: No Hx Alcohol Use: Yes Constitutional Vital Sign - Last 24 Hours 08/16/18 08/16/18 08/16/18 08/16/18 13:19 13:23 13:44 13:58 Temp 98.6 Pulse 95 89 Resp 17 B/P (MAP) 130/70 130/70 (90) 115/67 (83) Pulse Ox 89 90 O2 Delivery Room Air 08/16/18 14:14 Pulse 85 Pulse Ox 91 Physical Exam General appearance: alert no distress. Back: Thoracic spine has no spinal or paraspinal tenderness to palpation. Lumbar spine has no spinal tenderness moderateparaspinal tenderness Gastroinal: Abdomen is soft, non tender, no masses.. Skin: No lesions and no rashes. Vascular: Normal capillary refill and pulses to feet. Neurological: Motor function: leg strength normal and symmetric for both legs Sensory function: normal for all leg dermatomes. Straight leg raise negative to 70 degrees. Reflexes normal bilaterally on legs. [ ] DIFFERENTIAL DIAGNOSIS: After history and physical exam differential diagnosis was considered for back pain including muscular strain, herniated disc, intra- abdominal and renal causes. Medical Decision Making EKG/Imaging Imaging FACILITY: [facility] PATIENT NAME: Siena Tomlinson : 1945 MR: [id number] V: [id number] EXAM DATE: ORDERING PHYSICIAN: POP SENA TECHNOLOGIST: Location: [facility] [place] Patient: Siena Tomlinson : 1945 Visit/Account:[id number] Date of Sevice: 08/16/2018 HIP LEFT COMPARISON: None. HISTORY: pain TECHNIQUE: One AP view of the pelvis and an additional view of the left hip FINDINGS: BONES: The left femoral head is normally formed and in good alignment with a normally formed acetabulum. No significant arthropathy, fracture, malalignment, or significant osseous lesion. Sacroiliac joints are intact. SOFT TISSUES: Negative. No visible soft tissue swelling. EFFUSION: None suggested. OTHER: Spinal fusion hardware, lower thoracic spine with an L5 transitional vertebra noted. IMPRESSION: Unremarkable left hip. Report Dictated By: Tim Chavis at 08/16/2018 2:21 PM Report E-Signed By: Tim Chavis at 08/16/2018 2:22 PM WSN:[id number] FACILITY: [facility] PATIENT NAME: Siena Tomlinson : 1945 MR: [id number] V: [id number] EXAM DATE: [id number] ORDERING PHYSICIAN: POP SENA TECHNOLOGIST: Location: [facility] [place] Patient: Siena Tomlinson : 1945 Visit/Account:[id number] Date of Sevice: 08/16/2018 L-SPINE 2 OR 3 VIEW COMPARISON: None. HISTORY: pain TECHNIQUE: Lumbar spine radiographs (3 views) FINDINGS: ALIGNMENT: First-degree retrolisthesis of about 4 mm at L1-L2. No other significant subluxation. VERTEBRAL BODIES: There appear to be four lumbar type vertebra with at least partially sacralized L5 transitional vertebra and there is posterior spinal fusion hardware at L3, L4 and L5 with no hardware related complications evident at this time. Intact vertebral body heights without fracture or osseous lesion. There is moderate anterior and lateral endplate spurring in the lower thoracic and upper lumbar spine and there is degenerative endplate sclerosis in the lower thoracic and upper lumbar spine. At least partially fused transverse processes at L4 and L5. DISC SPACES: Markers related to previous L3-4 and L4-5 fusion. SACROILIAC JOINTS: Unremarkable. OTHER: Right upper quadrant cholecystectomy clips. Moderate aortoiliac calcifications. IMPRESSION: 1. Lumbosacral transitional vertebra at L5, which is at least partially and perhaps completely sacralized. With this noted there is anterior posterior spinal fusion changes at L3, L4 and L5 without complication. 2. Moderate degenerative changes in the lower thoracic and lumbar spine. 3. Cholecystectomy. Report Dictated By: Tim Chavis at 08/16/2018 2:10 PM Report E-Signed By: Tim Chavis at 08/16/2018 2:21 PM WSN:[id number] ED Course/Re-evaluation ED Course Plan at this time will be to check the lower lumbar spine x-ray and also check left hip x-ray. Decision to Disposition Date: Aug 16, 2018 Decision to Disposition Time: 14:30 Depart Departure Latest Vital Signs Vital Signs Date Time Temp Pulse Resp B/P (MAP) Pulse Ox O2 Delivery O2 Flow Rate FiO2 08/16/18 14:14 85 91 08/16/18 13:58 115/67 (83) 08/16/18 13:19 98.6 17 Room Air Impression: Primary Impression: Lumbago of lumbar region with sciatica Condition: Improved Disposition: HOME OR SELF-CARE Referrals: HOLLY CAMACHO DO (PCP) 1 Week if symptoms persist New Scripts Tramadol Hcl (TRAMADOL HCL) 50 Mg Tablet 50 MG PO Q6H PRN for PAIN, #12 TAB 0 Refills Prov: POP SENA MD 08/16/18 Patient Instructions: Acute Low Back Pain (DC) POP SENA MD Aug 16, 2018 13:18
[2018-08-16] MEDS ORDERED: MELO7.5O3 PO (13:34)
[2018-08-16] MEDS ORDERED: KETOROLAC 30 MG/ML VIAL IM ONE (13:40)
[2018-08-16 13:58] VITALS: BP 115/67
--- NOTE | 2018-08-16 14:26 | RADIOLOGY IMAGING REPORT ---
FACILITY: [facility] PATIENT NAME: Siena Tomlinson : 1945 MR: [id number] V: [id number] EXAM DATE: ORDERING PHYSICIAN: POP SENA TECHNOLOGIST: [place] [facility] [place] Siena Toml[place] : 1945 Visit/Account:[id number] Date of Sevice: 08/16/2018 HIP LEFT COMPARISON: None. HISTORY: pain TECHNIQUE: One AP view of the pelvis and an additional view of the left hip FINDINGS: BONES: The left femoral head is normally formed and in good alignment with a normally formed acetabu lum. No significant arthropathy, fracture, malalignment, or significant osseous lesion. Sacroiliac j oints are intact. SOFT TISSUES: Negative. No visible soft tissue swelling. EFFUSION: None suggested. OTHER: Spinal fusion hardware, lower thoracic spine with an L5 transitional vertebra noted. IMPRESSION: Unremarkable left hip. Report Dictated By: Tim Chavis at 08/16/2018 2:21 PM Report E-Signed By: Tim Chavis at 08/16/2018 2:22 PM WSN:[id number]
--- NOTE | 2018-08-16 14:27 | RADIOLOGY IMAGING REPORT ---
FACILITY: PATIENT NAME: Siena Tomlinson : 1945 MR: [id number] V: [id number] EXAM DATE: ORDERING PHYSICIAN: POP SENA TECHNOLOGIST: [place] [facility] [place] Siena Tomlinson : 1945 Visit/Account:[id number] Date of Sevice: 08/16/2018 L-SPINE 2 OR 3 VIEW COMPARISON: None. HISTORY: pain TECHNIQUE: Lumbar spine radiographs (3 views) FINDINGS: ALIGNMENT: First-degree retrolisthesis of about 4 mm at L1-L2. No other significant subluxation. VERTEBRAL BODIES: There appear to be four lumbar type vertebra with at least partially sacralized L5 transitional vertebra and there is posterior spinal fusion hardware at L3, L4 and L5 with no hardwar e related complications evident at this time. Intact vertebral body heights without fracture or osse ous lesion. There is moderate anterior and lateral endplate spurring in the lower thoracic and upper lumbar spine and there is degenerative endplate sclerosis in the lower thoracic and upper lumbar spi ne. At least partially fused transverse processes at L4 and L5. DISC SPACES: Markers related to previous L3-4 and L4-5 fusion. SACROILIAC JOINTS: Unremarkable. OTHER: Right upper quadrant cholecystectomy clips. Moderate aortoiliac calcifications. IMPRESSION: 1. Lumbosacral transitional vertebra at L5, which is at least partially and perhaps completely sacra lized. With this noted there is anterior posterior spinal fusion changes at L3, L4 and L5 without co mplication. 2. Moderate degenerative changes in the lower thoracic and lumbar spine. 3. Cholecystectomy. Report Dictated By: Tim Chavis at 08/16/2018 2:10 PM Report E-Signed By: Tim Chavis at 08/16/2018 2:21 PM WSN:[id number]
[2018-08-16] MEDS ORDERED: TRAM-420 PO (14:32)
== END 2018-08-16 14:39 | disposition home or self-care (01) ==
LOC: ER 13:29
DX: M54.42 Lumbago with sciatica, left side (principal)
CPT/HCPCS: 72100; 73502; 96372; 99284; J1885

== ENCOUNTER 2018-08-31 01:57 | Day surgery (SDC) | payer MEDICARE ==
[2018-03-17 08:35] VITALS: Ht 152.4 cm; Wt 80.3 kg
[~2018-08-31] VITALS: Ht 152.4 cm; Wt 80.3 kg
[~2018-08-31 01:57] MED LIST changes: +ALBU8.5H IH; +ATOR20TA65 PO; +HYDR200T42 PO; +MELO7.5O3 PO; +PANT20TA27 PO; +SPIR25TA80 PO
[2018-08-31] MEDS ORDERED: LIDOCAINE MPF 1% 5 ML VIAL ONE ×2 (07:46→07:47)
[2018-08-31] MEDS ORDERED: PROPOFOL EMUL(*) 10MG/ML 20 ML 40 ML ONE (07:46)
[2018-08-31] MEDS ORDERED: NORMOSOL R SOLN(*) 1000 ML BAG 1,000 ML IV PRN (08:30)
[2018-08-31] MEDS ORDERED: LIDOCAINE/SOD BICARB 8.4% SYR ID ONE (08:30)
[2018-08-31 09:05] VITALS: BP 123/71
[2018-08-31 10:25] VITALS: BP 120/58
[2018-08-31 10:30] VITALS: BP 116/62
--- NOTE | 2018-08-31 10:41 | Short(Outpt) Discharge Summary ---
Discharge Summary Reason for Hosp/Final Diag: (1) Positive occult stool blood test Hospital Course & Plan: pt presented for colonoscopy. she tolerated the procedure well. she will be discharged home when criteria met. Departure Discharge to: Home Discharge Instructions Home Meds Reported Medications Albuterol Sulfate 90 Mcg/Act (PROAIR HFA 90 MCG/ACT) 8.5 Gm Hfa.aer.ad, 1-2 PUFF IH 3-4XD PRN for WHEEZING, INHALER 08/25/18 Spironolactone (SPIRONOLACTONE) 25 Mg Tablet, 25 MG PO QDAY, TAB 08/25/18 Hydroxychloroquine Sulfate (HYDROXYCHLOROQUINE SULFATE) 200 Mg Tablet, 200 MG PO QDAY 08/25/18 Pantoprazole Sodium (PANTOPRAZOLE SODIUM) 20 Mg Tablet.dr, 20 MG PO QDAY, TAB.SR 08/25/18 Atorvastatin Calcium (ATORVASTATIN CALCIUM) 20 Mg Tablet, 1 TAB PO QDAY, TAB 08/25/18 Meloxicam (MELOXICAM) 7.5 Mg/5 Ml Oral.susp, 7.5 MG PO QDAY 08/16/18 Metformin Hcl (METFORMIN HCL ER) 500 Mg Tab.er.24, 1 TAB PO QDAY, TAB 03/16/18 Erythromycin Base (Erythromycin) 5 Mg/Gram (0.5 %) Oint...g., 1 UNIT TP HS 03/08/18 Prednisolone Sod Phos 15 Mg/5 Ml (PREDNISOLONE SOD PHOS 15 MG/5 ML) 15 Mg/5 Ml Solution, 1 GTT OD DAILY, BOT 03/08/18 Acyclovir (ACYCLOVIR) 400 Mg Tablet, 400 MG PO BID, TAB 03/08/18 Fluticasone/Vilanterol 100/25 Mcg/Inh (BREO ELLIPTA 100/25 MCG) 1 Each Aer.pow.ba, 1 INH INH QAM, INH 12/15/17 Cyanocobalamin (Vitamin B-12) (VITAMIN B-12) 250 Mcg Tablet, 250 MCG PO QDAY 07/27/16 Aspirin (ASPIR 81) 81 Mg Tablet.dr, 81 MG PO QDAY, TAB Hold while taking the Aspirin 325mg, then resume after 30 days. 07/27/16 Glucosa [place]utherford 2KCL/Chondroitin [place] (GLUCOSAMINE CHONDROITIN CAPLET) 1 Each Tablet, 1 EACH PO BID 11/08/13 Citalopram Hydrobromide (Citalopram Hbr) 20 Mg Tablet, 20 MG PO DAILY, 0 Refills 02/07/12 Calcium Carbonate/Vitamin D3 (Calcium W-Vit D 600-200 Mg Tab) 1 Tab Tablet, 1 TAB PO BID, 0 Refills 02/27/11 Ascorbate Calcium (Vitamin C) 500 Mg Tablet, 500 MG PO BID, 0 Refills 02/27/11 Verapamil Hcl (Verelan) 180 Mg Cap24h.pel, 180 MG PO DAILY, 0 Refills 02/27/11 Discontinued Reported Medications Pantoprazole Sodium (PANTOPRAZOLE SODIUM) 40 Mg Tablet.dr, 40 MG PO QDAY, TAB.SR 03/02/17 Atorvastatin Calcium (ATORVASTATIN CALCIUM) 10 Mg Tablet, 1 TAB PO QDAY, TAB 07/27/16 Discontinued Scripts Tramadol Hcl (TRAMADOL HCL) 50 Mg Tablet, 50 MG PO Q6H PRN for PAIN, #12 TAB 0 Refills Prov:POP SENA MD 08/16/18 Diet: Regular Activity: As Tolerated Special Instructions: we will call you in 10 days with bx results. DANNY CONDON Aug 31, 2018 10:41
--- NOTE | 2018-08-31 10:56 | NUR ---
1023 PT ARRIVED TO [place] VIA CART, SAFETY MAINTAINED, VSS, PT ALERT ALREADY, DOWNT O 5L FROM 10 OXY MASK 1030 PT TOLERATING WATER, FRIEND YESICA AT BEDSIDE, DOWN TO 3L 1035 DOWN TO RA, SATTING WELL, UP TO SF POSITION, DENIES PAIN, BUT HAS DISCOMFORT SIMILAR TO MENSTRUAL CRAMPS
[2018-08-31 10:59] VITALS: BP 125/75
[2018-08-31 11:13] VITALS: BP 128/77
[2018-08-31 11:15] VITALS: BP 118/76
--- NOTE | 2018-08-31 11:18 | NUR ---
1100VSS, DR. CONDON AT BEDSIDE TO DISCUSS FINDINGS 1113 PT WOULD LIKE TO USE RESTROOM, ORTHOSTATICS DONE, STABLE, ALLOWED TO DRESS
--- NOTE | 2018-08-31 11:38 | NUR ---
1120 D/C INSTRUCTIONS COVERED, ALL QUESTIONS ANSWERED 1125 IV OUT, CATH TIP INTACT PRESSURE DRESSING APPLIED 1130 PT DECLINES WC OUT TO CAR JUST OUTSIDE ADMITTING ENTRANCE, STEADY ON FEET, SELF TRANSFERRED INTO TALL SUBURBAN WITHOUT INCIDENT, ALL BELONGINGS WITH PT.
== END 2018-08-31 11:30 | disposition home or self-care (01) ==
LOC: OR 01:57
PROVIDERS: ATTEND Surgery
DX: D12.2 Benign neoplasm of ascending colon (principal); K63.5 Polyp of colon; E11.9 Type 2 diabetes mellitus without complications
CPT/HCPCS: 00811; 36416; 45384; 45385; 82948; 88305; J2001; J2704

== ENCOUNTER → 2018-11-09 | Outpatient (CLI) | payer MEDICARE ==
[2018-03-17 08:35] VITALS: BMI 33.9
== END ==
LOC: LAB 10:22
PROVIDERS: ATTEND Internal Medicine Cardiovascular Disease
DX: I25.118 Atherosclerotic heart disease of native coronary artery with other forms of angina pectoris (principal)
CPT/HCPCS: 36415; 82310; 82374; 82435; 82465; 82565; 82947; 83718; 84132; 84295; 84478; 84520